=== PATIENT | male | born 1995 ===

== ENCOUNTER 2016-09-24 11:30 | Emergency (ER) | payer MEDICAID, OTHER ==
[2016-09-24 11:31] VITALS: BMI 23.7
[2016-09-24] MEDS ORDERED: Bacitracin 500 Units/gm Oint Foilpak UD ONE (12:57)
[2016-09-24] MEDS ORDERED: Lidocaine 2% Inj (20ml) INFIL ONE (13:00)
[2016-09-24] MEDS ORDERED: Amoxicillin-Clav 875-125 mg Tab PO STA (13:00)
--- NOTE | 2016-09-24 13:00 | C.PDOC ---
History Of Present Illness A 21 year old male presents to the emergency room for the evaluation of a left thumb laceration sustained prior to arrival at work. Patient notes bleeding from the wound. Patient denies any obvious deformity, neurovascular deficits, any other trauma/pain, or any other complaints. Time Seen by Provider: 09/24/16 11:53 Chief Complaint (Nursing): Abnormal Skin Integrity History Per: Patient History/Exam Limitations: no limitations Onset/Duration Of Symptoms: Hrs Current Symptoms Are (Timing): Still Present Location Of Injury: Left: Hand (Left thumb) Quality Of Symptoms: Other (Bleeding) Severity: Mild Recent travel outside of the [place]: No Past Medical History Reviewed: Historical Data, Nursing Documentation, Vital Signs Vital Signs: Last Vital Signs Temp 97.9 F 09/24/16 13:00 Pulse 88 09/24/16 13:00 Resp 18 09/24/16 13:00 BP 123/72 09/24/16 13:00 Pulse Ox 97 09/24/16 13:00 - Medical History PMH: Anxiety, Asthma, Depression Family History: States: Unknown Family Hx, Diabetes - Social History Hx Tobacco Use: No Hx Alcohol Use: No Hx Substance Use: Yes - Immunization History Hx Tetanus Toxoid Vaccination: No Hx Influenza Vaccination: No Hx Pneumococcal Vaccination: No Review Of Systems Except As Marked, All Systems Reviewed And Found Negative. Constitutional: Negative for: Fever, Chills Gastrointestinal: Negative for: Nausea, Vomiting, Diarrhea Skin: Positive for: Other (Left thumb laceration) Neurological: Negative for: Weakness, Numbness Physical Exam - Physical Exam Appears: Well, Non-toxic Skin: Other (Left thumb - 3cm flap laceration through subcutaneous. No foreign bodies in wound. No tendon injury.) Eye(s): bilateral: Normal Inspection Ear(s): Bilateral: Normal Extremity: Normal ROM (Full active range of motion), No Tenderness, No Deformity , No Swelling, Other (Left hand: no neurovascular deficits distally to laceration.) Neurological/Psych: Oriented x3, Normal Speech, Normal Cognition, Normal Motor, Normal Sensation, Normal Reflexes ED Course And Treatment Progress Note: On re-eavl, pt is afebrile, hemodynamicaly stable. Non-toxic. laceration to left humb repaired with sutures without difficulty. FAROM of Left thumb, no neurovascular deficits. tetanus rosettee lance refused. Pt advised on wound care,. ref. to F/u with PMD in 2 days for wound check. return to Ed if any worsening or new changes. Laceration - Laceration Repair lEFT THUMB Wound Length (In cm): 3CM Description Of Wound: Linear Anesthesia: Lidocaine 2% (digital block) Wound Examination: Irrigated With Saline, No FB With Wound Exploration, No Tendon Injury With Wound Exploration Wound Closure: Suture (#8) Suture Technique And Material Used: Interrupted, Prolene (5-0) Wound Complexity: Simple Disposition Counseled Patient/Family Regarding: Diagnosis, Need For Followup, Rx Given - Disposition Disposition: HOME/ ROUTINE Disposition Time: 12:57 Condition: STABLE Additional Instructions: KEEP WOUND CLEAN, DRY FOR 5-7 DAYS TAKE MEDICATION PRESCRIBED SUTURE REMOVAL IN 10 DAYS RETURN TO ED AT ANY TIME IF ANY SIGN OF INFECTION. Prescriptions: Amoxicillin/Clavulanate [Augmentin 875 MG-125 MG] 1 tab PO BID #14 tab Bacitracin OINT 1 applic TP BID #1 tube Instructions: Laceration (ED) Forms: Work Excuse - Clinical Impression Clinical Impression: Laceration - Scribe Statement The provider has reviewed the documentation as recorded by the Scribe Tony Feliz All medical record entries made by the Ashleyibnatasha were at my direction and personally dictated by me. I have reviewed the chart and agree that the record accurately reflects my personal performance of the history, physical exam, medical decision making, and the department course for this patient. I have also personally directed, reviewed, and agree with the discharge instructions and disposition.
[2016-09-24 13:03] VITALS: BP 123/72; PULSE 88; RESP 18; TEMP 97.9; O2SAT 97
[2016-09-24] MEDS ORDERED: Bacitracin 500 Units/gm Oint Foilpak UD TOP ONE (13:03)
[2016-09-24] MEDS ORDERED: Tetanus/Diphtheria Toxoids 0.5 ml Syringe IM ONE (13:05)
[2016-09-24] MEDS ORDERED: Amoxicillin-Clav 875-125 mg Tab PO ONE (13:07)
== END 2016-09-24 13:25 | disposition home or self-care (01) ==
LOC: C.ER 11:30
DX: S61.012A Laceration without foreign body of left thumb without damage to nail, initial encounter (principal); W26.0XXA Contact with knife, initial encounter; Y93.9 Activity, unspecified; Y92.009 Unspecified place in unspecified non-institutional (private) residence as the place of occurrence of the external cause

== ENCOUNTER 2016-10-08 10:31 | Emergency (ER) | payer MEDICAID, OTHER ==
[2016-10-08 10:31] VITALS: BMI 23.7
[2016-10-08 10:48] VITALS: BP 125/56; TEMP 98.3; O2SAT 98
--- NOTE | 2016-10-08 11:19 | C.PDOC ---
History Of Present Illness 21 yo male here for suture removal from lacertaion with knife 14 days ago. SOme pain persists with movement. Sensational intact. Pt notes that he lifted something heavy at work yesterday and hand feels swollen. No erythema. NO fever. Time Seen by Provider: 10/08/16 10:58 Chief Complaint (Nursing): Suture/Staple Removal History Per: Patient History/Exam Limitations: no limitations Past Medical History Vital Signs: Last Vital Signs Temp 98.3 F 10/08/16 10:47 Pulse 73 10/08/16 10:47 Resp 16 10/08/16 10:47 BP 125/56 L 10/08/16 10:47 Pulse Ox 98 10/08/16 11:22 - Medical History PMH: Anxiety, Asthma, Depression Family History: States: Diabetes - Social History Hx Tobacco Use: No Hx Alcohol Use: No Hx Substance Use: Yes (daily use of marijuana) - Immunization History Hx Tetanus Toxoid Vaccination: No Hx Influenza Vaccination: No Hx Pneumococcal Vaccination: No Review Of Systems Except As Marked, All Systems Reviewed And Found Negative. Physical Exam - Physical Exam Appears: Well, Non-toxic, No Acute Distress Skin: Warm, Dry, Other (Healed laceration to the left thumb with some swelling noted, no erythema no discharge no fluctuance) Head: Atraumatic, Normacephalic Eye(s): bilateral: Normal Inspection, EOMI Nose: Normal Oral Mucosa: Moist Neck: Normal Chest: Symmetrical Respiratory: No Accessory Muscle Use Back: Normal Inspection Extremity: No Normal ROM (decreased secondary to pain at thumb), Tenderness ( diffusely), Capillary Refill (<2 sec) Pulses: Left Radial: Normal, Right Radial: Normal Neurological/Psych: Oriented x3, Normal Sensation ED Course And Treatment O2 Sat by Pulse Oximetry: 98 Progress Note: No signs of infection. No direct trauma. Strong pulses. Sensation intact. 2 sutures removed. Pt notes that he can see that the proximal end of the laceration is not healed. Pt was instructed to return in 3 days for suture removal. Disposition - Disposition Referrals: Hussain Rocha MD [Staff Provider] - Disposition: HOME/ ROUTINE Disposition Time: 11:20 Condition: STABLE Additional Instructions: Return in 3-4 days for suture removal. Follow up with your PMD or hand specialist in 1-2 days. Instructions: Stitches Removal (ED) - Clinical Impression Clinical Impression: Removal of suture
[2016-10-08 13:06] VITALS: PULSE 71; RESP 18
== END 2016-10-08 11:30 | disposition home or self-care (01) ==
LOC: C.ER 10:31
DX: Z48.02 Encounter for removal of sutures (principal)

== ENCOUNTER 2016-10-17 09:24 | Emergency (ER) | payer MEDICAID ==
[2016-10-17 09:24] VITALS: BMI 23.7
[2016-10-17 09:47] VITALS: RESP 18
[2016-10-17 09:54] VITALS: BP 124/75; PULSE 75; TEMP 98.2; O2SAT 98
[2016-10-17] MEDS ORDERED: Bacitracin 500 Units/gm Oint Foilpak UD ONE (10:52)
--- NOTE | 2016-10-17 11:12 | C.PDOC ---
History Of Present Illness 21 yr old male presents to the ER for suture removal from the left thumb. Patient states the sutures were put in 2 weeks ago. Denies drainage or signs of infections, fever, arm pain, weakness or numbness. Time Seen by Provider: 10/17/16 10:15 Chief Complaint (Nursing): Suture/Staple Removal History Per: Patient History/Exam Limitations: no limitations Onset/Duration Of Symptoms: Days Ago (2 weeks ) Current Symptoms Are (Timing): Gone Past Medical History Reviewed: Historical Data, Nursing Documentation, Vital Signs Vital Signs: Last Vital Signs Temp 98.2 F 10/17/16 09:49 Pulse 75 10/17/16 09:49 Resp 18 10/17/16 09:49 BP 124/75 10/17/16 09:49 Pulse Ox 98 10/17/16 11:15 - Medical History PMH: Anxiety, Asthma, Depression Family History: States: Diabetes - Social History Hx Tobacco Use: No Hx Alcohol Use: No Hx Substance Use: Yes - Immunization History Hx Tetanus Toxoid Vaccination: No Hx Influenza Vaccination: No Hx Pneumococcal Vaccination: No Review Of Systems Except As Marked, All Systems Reviewed And Found Negative. Constitutional: Negative for: Fever Musculoskeletal: Negative for: Arm Pain Skin: Positive for: Other (Sutures in place to the base of right hand, thumb. ) Neurological: Negative for: Weakness, Numbness Physical Exam - Physical Exam Appears: Well, Non-toxic, No Acute Distress Skin: Normal Color, Warm, Dry, No Rash Head: Atraumatic, Normacephalic Extremity: Normal ROM, No Tenderness, Capillary Refill (<2), No Swelling, Other (Right hand, thumb - 6 sutures were removed. Clean and healing site. No signs of infections. ) Neurological/Psych: Oriented x3, Normal Speech, Normal Motor ED Course And Treatment O2 Sat by Pulse Oximetry: 98 Disposition - Disposition Referrals: Clinic,Med Surg [Primary Care Provider] - Disposition: HOME/ ROUTINE Disposition Time: 10:30 Condition: GOOD Additional Instructions: Thank you for letting us take care of you today. Your provider was Dr. German. You were treated for suture removal. The emergency medical care you received today was directed at your acute symptoms. If you were prescribed any medication, please fill it and take as directed. It may take several days for your symptoms to resolve. Return to the Emergency Department if your symptoms worsen, do not improve, or if you have any other problems. Please contact your doctor or call one of the physicians/clinics you have been referred to that are listed on the Patient Visit Information form that is included in your discharge packet. Bring any paperwork you were given at discharge with you along with any medications you are taking to your follow up visit. Our treatment cannot replace ongoing medical care by a primary care provider (PCP) outside of the emergency department. Thank you for allowing the [facility] team to be part of your care today. Keep area clean and dry until completed healed. Instructions: Stitches Removal (ED) - Clinical Impression Clinical Impression: Removal of suture - Scribe Statement The provider has reviewed the documentation as recorded by the Ashleyibe Casie Christiansen Provider Attestation: All medical record entries made by the Joey were at my direction and personally dictated by me. I have reviewed the chart and agree that the record accurately reflects my personal performance of the history, physical exam, medical decision making, and the department course for this patient. I have also personally directed, reviewed, and agree with the discharge instructions and disposition.
== END 2016-10-17 11:00 | disposition home or self-care (01) ==
LOC: C.ER 09:24 → SUPCPDRO 09:24 → C.ER 11:00
DX: Z48.02 Encounter for removal of sutures (principal)